=== PATIENT | female | born 1965 | race Two or more races ===

== ENCOUNTER 2019-05-14 08:00 | Inpatient (IN) | payer OTHER ==
[~2019-05-14] VITALS: Ht 162.6 cm; Wt 63.0 kg
[2019-05-14] MEDS ORDERED: SINGULAIR10 MG PO (10:58)
[2019-05-14] MEDS ORDERED: ZYRTEC10 M3 PO (10:58)
[2019-05-14] MEDS ORDERED: VITAMIN C100 MG PO (10:59)
[2019-05-14] MEDS ORDERED: D3-5050000 UNIT PO (10:59)
[2019-05-14] MEDS ORDERED: PREMPRO 0.625-1 EAC1 PO (10:59)
== END 2019-05-19 13:38 | disposition home or self-care (01) | DRG 581 ==
LOC: O/R 05-17 07:00 → SURG 05-17 07:00 → SURH 05-17 08:00 → SURG 05-17 18:44 → SURH 05-18 18:26 → SURG 05-18 20:02
PROVIDERS: Plastic Surgery; ADMIT Surgery
PROC: 0HHV0NZ Insertion of Tissue Expander into Bilateral Breast, Open Approach (ICD-10-PCS; 2019-05-17)
PROC: 07B80ZX Excision of Right Internal Mammary Lymphatic, Open Approach, Diagnostic (ICD-10-PCS; principal; 2019-05-17 13:00)
PROC: 0HTV0ZZ Resection of Bilateral Breast, Open Approach (ICD-10-PCS; 2019-05-17 13:00)
DX: N60.81 Other benign mammary dysplasias of right breast (principal); D48.1 Neoplasm of uncertain behavior of connective and other soft tissue; R92.0 Mammographic microcalcification found on diagnostic imaging of breast; N64.89 Other specified disorders of breast; N60.82 Other benign mammary dysplasias of left breast; Z90.13 Acquired absence of bilateral breasts and nipples

== ENCOUNTER 2021-04-19 10:03 | Outpatient (CLI) | payer OTHER ==
[~2021-04-19 10:03] MED LIST: D3-5050000 UNIT PO; PREMPRO 0.625-1 EAC1 PO; SINGULAIR10 MG PO; VITAMIN C100 MG PO; ZYRTEC10 M3 PO
== END 2021-04-19 12:01 | disposition home or self-care (01) ==
LOC: SONOGRAMA 10:03
PROVIDERS: ATTEND Pathology Anatomic Pathology & Clinical Pathology
DX: E04.2 Nontoxic multinodular goiter (principal)

== ENCOUNTER 2021-08-23 08:05 | Outpatient (CLI) | payer OTHER | END 2021-08-23 08:10 | disposition home or self-care (01) | LOC: SONOGRAMA 08:05 | PROVIDERS: ATTEND Pathology Anatomic Pathology & Clinical Pathology | DX: E04.2 Nontoxic multinodular goiter (principal) ==

== ENCOUNTER 2023-05-12 05:30 | Day surgery (SDC) | payer OTHER ==
[2023-05-11 10:36] LABS: HEMATOCRIT 41.6 % (36.0-45.00); MEAN CORPUSCULAR HEMOGLOBIN 28.3 pg (27.00-32.0); MEAN CORPUSCULAR HGB CONC 33.7 g/dl (32.0-36.0); PLATELET COUNT 187 K/uL (150-450); RED BLOOD COUNT 4.95 M/uL (4.00-6.00)
[2023-05-11 10:58] LABS: INR 1.02; PARTIAL THROMBOPLASTIN TIME 28.4 SECONDS (22.0-34.0); PROTHROMBIN TIME 10.7 SECONDS (9.0-11.5)
[2023-05-11 10:59] LABS: PH,URINE 7.5 (5.0-8.0); URINE APPEARANCE Clear; URINE BILIRRUBIN Negative (NEGATIVE); URINE BLOOD Negative; URINE COLOR Yellow; URINE GLUCOSE Negative (NEGATIVE); URINE LEUKOCYTE Trace; URINE NITRATE Negative; URINE PROTEIN Negative (NEGATIVE); URINE UROBILINOGEN 0.2 E.U./dl
[2023-05-11 10:59] LABS: CALCIUM 10.1 mg/dL (8.5-10.1); CREATININE SERUM 0.76 mg/dL (0.55-1.02); GFR 78.72; POTASSIUM 4.82 mEq/L (3.5-5.1)
[2023-05-11 11:04] LABS: URINE BACTERIA 57.8 uL (0.0-1933); URINE WBC 4.6 uL (0.0-23.2)
[~2023-05-12 05:30] MED LIST changes: +LIPITOR20 MG PO
== END 2023-05-12 13:30 | disposition home or self-care (01) ==
LOC: CIR.AMB 05:30
PROVIDERS: ATTEND Plastic Surgery
DX: Z90.13 Acquired absence of bilateral breasts and nipples (principal); C50.811 Malignant neoplasm of overlapping sites of right female breast; N60.91 Unspecified benign mammary dysplasia of right breast; N60.92 Unspecified benign mammary dysplasia of left breast; Z88.2 Allergy status to sulfonamides; Z88.1 Allergy status to other antibiotic agents

== ENCOUNTER 2025-03-24 20:59 | Emergency (ER) | payer OTHER ==
[~2025-03-24] VITALS: Ht 162.6 cm; Wt 62.1 kg
[2025-03-24] MEDS ORDERED: EPINEPHRINE HCL/PF 1 MG/ML AMPUL IV PUSH ONE (23:45)
[2025-03-24] MEDS ORDERED: DIPHENHYDRAMINE HCL 50 MG/ML VIAL 1ML IV ONE (23:45)
[2025-03-24] MEDS ORDERED: METHYLPREDNISOLONE SOD SUCC 125 MG VIAL IV ONE (23:45)
[2025-03-25 00:44] LABS: BASO % 0.7 % (0.1-1.2); EOS # 0.11 (0.04-0.54); EOS % 1.6 % (0.7-7.0); LYMPH # 2.28 (1.18-3.74); LYMPH % 33.4 % (19.3-53.1); MEAN PLATELET VOLUME 10.90 fl (9.4-12.4); MONO # 0.57 (0.24-0.82); MONO % 8.3 % (4.7-12.5); NEUT # 3.81 (1.56-6.13); NEUT % 55.9 % (34.0-71.1); RED CELL DISTRIBUTION WIDTH 12.9 % (11.6-14.4)
[2025-03-25 02:13] LABS: COVID-19 AG NEGATIVE (NEGATIVE)
[2025-03-25] MEDS ORDERED: EPIPEN0.3 MG/0.1 IJ (02:31)
== END 2025-03-25 03:48 | disposition home or self-care (01) ==
LOC: ER 20:59
PROVIDERS: General Practice
DX: T78.40XA Allergy, unspecified, initial encounter (principal); Z88.2 Allergy status to sulfonamides; Z91.018 Allergy to other foods; Z20.822 Contact with and (suspected) exposure to COVID-19

== ENCOUNTER 2025-04-05 18:45 | Emergency (ER) | payer OTHER ==
[~2025-04-05] VITALS: Ht 162.6 cm; Wt 62.1 kg
[~2025-04-05 18:45] MED LIST changes: +EPIPEN0.3 MG/0.1 IJ
[2025-04-05] MEDS ORDERED: FAMOTIDINE/PF 20 MG/2 ML VIAL IV STA (19:02)
[2025-04-05] MEDS ORDERED: DEXAMETHASONE SODIUM PHOSPHATE 4 MG/ML VIAL IV STA (19:02)
[2025-04-05] MEDS ORDERED: PROMETHAZINE HCL 25 MG/ML AMPUL IM STA (19:12)
[2025-04-05] MEDS ORDERED: PROMETHAZINE HCL 25 MG/ML AMPUL ONE (20:12)
[2025-04-05] MEDS ORDERED: FAMOTIDINE/PF 20 MG/2 ML VIAL ONE (20:12)
[2025-04-05] MEDS ORDERED: DEXAMETHASONE SODIUM PHOSPHATE 4 MG/ML VIAL ONE (20:12)
[2025-04-05 20:46] LABS: BASO % 0.3 % (0.1-1.2); EOS # 0.01 (0.04-0.54); EOS % 0.1 % (0.7-7.0); LYMPH # 0.65 (1.18-3.74); LYMPH % 7.1 % (19.3-53.1); MEAN PLATELET VOLUME 10.70 fl (9.4-12.4); MONO # 0.13 (0.24-0.82); MONO % 1.4 % (4.7-12.5); NEUT # 8.25 (1.56-6.13); NEUT % 90.8 % (34.0-71.1); RED CELL DISTRIBUTION WIDTH 13.1 % (11.6-14.4)
[2025-04-05 21:19] LABS: BUN CREA RATIO 12.0 (7.0-25.0); CREATININE SERUM 0.83 mg/dL (0.55-1.02); GFR 70.61; GLUCOSE FASTING 144.0 mg/dL (65-100); OSMOLALITY SERUM 287.0 MOSM/KG (275-295)
[2025-04-05 22:25] LABS: URINE APPEARANCE Clear; URINE BILIRRUBIN Negative (NEGATIVE); URINE BLOOD Negative; URINE COLOR Yellow; URINE GLUCOSE Negative (NEGATIVE); URINE KETONE Negative (NEGATIVE); URINE LEUKOCYTE Trace; URINE NITRATE Negative; URINE PROTEIN Negative (NEGATIVE); URINE UROBILINOGEN 0.2 E.U./dl
[2025-04-05 22:28] LABS: URINE BACTERIA 11.9 uL (0.0-1933); URINE EPITHELIAL CELLS 5.0 uL (0.0-38.8); URINE RBC 6.5 uL (0.0-20.8); URINE WBC 9.2 uL (0.0-23.2)
[2025-04-05 22:29] LABS: URINE CAST 0.00 uL (0.0-1.40)
== END 2025-04-05 22:56 | disposition home or self-care (01) ==
LOC: ER 18:45
PROVIDERS: General Practice
DX: R13.19 Other dysphagia (principal); Z88.2 Allergy status to sulfonamides; Z91.018 Allergy to other foods; F31.89 Other bipolar disorder

== ENCOUNTER 2025-04-21 08:55 | Outpatient (CLI) | payer OTHER | END 2025-04-21 08:57 | disposition home or self-care (01) | LOC: SONOGRAMA 08:55 | PROVIDERS: ATTEND Pathology Anatomic Pathology | DX: D34 Benign neoplasm of thyroid gland (principal); E07.89 Other specified disorders of thyroid; E04.1 Nontoxic single thyroid nodule ==